=== PATIENT | female | born 1945 | race Caucasian/White ===

== ENCOUNTER → 2017-05-07 | Outpatient (CLI) | payer MEDICARE ==
[~2017-05-07] MED LIST: ADVA500A INH; ALBU1AER INH; ALBU3NEB IN; COUM5TAB PO; WARF7.5 PO
--- NOTE | 2017-05-08 11:40 | RSPPFT ---
DATE OF PROCEDURE: 05/07/17 COMMENTS: Spirometry with FVC of 1.7 predicted 2.9, FEV1 of 0.6 predicted 2.2, FEV1/FVC ratio at 36% predicted 81%. Post-bronchodilator FVC increases to 2.1 and FEV1 to 0.8. Mild air trapping is present with RV at 2.6 predicted 2.2. DLCO is 44% of predicted. IMPRESSION: On the basis of the above, patient has a severe obstructive lung defect with some response to acutely inhaled bronchodilator. Mild air trapping is present. DLCO is decreased.
== END ==
LOC: HRSP 12:52 → EDBD 12:52
PROVIDERS: ATTEND Internal Medicine Pulmonary Disease
DX: J44.9 Chronic obstructive pulmonary disease, unspecified (principal)
CPT/HCPCS: 94060; 94726; 94729